=== PATIENT | male | born 1990 | race African-American/Black ===

== ENCOUNTER 2019-03-28 17:47 | Emergency (ER) | payer OTHER ==
[2019-03-28 18:33] VITALS: BP 127/72
--- NOTE | 2019-03-28 19:13 | UC ---
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 + pressure and muffled, doesnt get better. -no ST, no cough, no congestion. no cold sx. no rash -just moved to area and doesnt have MD - History of Current Complaint Chief Complaint: UCEar Stated Complaint: L EAR PAIN Time Seen by Provider: 03/28/19 18:56 Pain Intensity: 5 - Allergies/Home Medications Allergies/Adverse Reactions: Allergies Allergy/AdvReac Type Severity Reaction Status Date / Time No Known Allergies Allergy Verified 03/28/19 18:33 PMH/Surg Hx/FS Hx/Imm Hx Previously Healthy: Yes - Surgical History Surgical History: None - Family History Known Family History: Positive: Hypertension - Social History Alcohol Use: None Alcohol Amount: 1 beer per week Substance Use Type: None Substance Use Comment - Amount & Last Used: history of marijuana use Smoking Status (MU): Light Every Day Tobacco Smoker Review of Systems All Other Systems Reviewed And Are Negative: Yes Constitutional: Positive: Negative Skin: Positive: Negative. Negative: Rash Eyes: Positive: Negative ENT: Positive: Negative, Ear Ache. Negative: Sore Throat, Nasal Discharge Respiratory: Positive: Negative Cardiovascular: Positive: Negative Gastrointestinal: Positive: Negative Genitourinary: Positive: Negative Motor: Positive: Negative Neurovascular: Positive: Negative Musculoskeletal: Positive: Negative Psychological: Positive: Negative Is Patient Immunocompromised?: No Physical Exam Triage Information Reviewed: Yes Appearance: Well-Appearing, No Pain Distress, Well-Nourished - very pleasant Vital Signs: Initial Vital Signs Temp 99.2 F 03/28/19 18:31 Pulse 86 03/28/19 18:31 Resp 18 03/28/19 18:31 BP 127/72 03/28/19 18:31 Pulse Ox 100 03/28/19 18:31 Eye Exam: Normal ENT: Positive: TM red - + several bclear fluid filled blisters superimposed on TM. no dc. intact. no perf., Uvula midline. 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 Discharge - Sign-Out/Discharge Documenting (check all that apply): Patient Departure All imaging exams completed and their final reports reviewed: No Studies - Discharge Plan Condition: Stable Disposition: HOME Prescriptions: Azithromyxin YASEMIN (NF) [Z-Yasemin (Zithromax) 250 mg tabs #6] 2 tab PO .TODAY, THEN 1 DAILY #6 tab Patient Education Materials: Ear Infection (ED) Referrals: No Primary Care Phys,NOPCP [Primary Care Provider] - [facility] [Provider Group] Additional Instructions: Your ear infection is is specific kind called bullous myrigitis that requires specific antibiotic therapy, azithromycin is considered 1st line treatment. Please follow up with PCP - # provided above for you to establish with. You can follow up here if your symptoms are increased or persist. - Billing Disposition and Condition Condition: STABLE Disposition: Home
== END 2019-03-28 19:25 | disposition home or self-care (01) ==
LOC: UCCORT 17:47
DX: H73.012 Bullous myringitis, left ear (principal); F17.200 Nicotine dependence, unspecified, uncomplicated
CPT/HCPCS: 99202; G0463

== ENCOUNTER 2019-10-10 13:27 | Emergency (ER) | payer OTHER ==
[2019-10-10 14:24] LABS: Influenza A Molecular Negative (Negative); Influenza B Molecular Negative (Negative)
--- NOTE | 2019-10-10 16:40 | ED ---
Influenza-Like Illness - HPI Summary HPI Summary: 29-year-old male with a past medical history of hypertension, Tourette's presents to the emergency department today with a chief complaint of body aches , fever, shortness of breath, cough and decreased appetite which began yesterday. Patient states he has significant myalgia which is made worse with taking deep breaths. He states his pain is "internal in my back". Patient has not taken any medication prior to arrival for alleviation of his symptoms. Patient is currently resting comfortably on the stretcher and in no acute distress. There is no evidence of labored breathing. Patient denies nausea, vomiting, diarrhea, pain with urination, rash, chest pain. Patient denies recent recreational drug use or alcohol use. Surgical history and family history noncontributory. - History of Current Complaint Chief Complaint: EDFluSymptoms Time Seen by Provider: 10/10/19 16:39 Hx Obtained From: Patient Onset/Duration: Gradual Onset Severity: Severe Associated Signs & Symptoms: Fever, Myalgia, Cough - Allergy/Home Medications Allergies/Adverse Reactions: Allergies Allergy/AdvReac Type Severity Reaction Status Date / Time No Known Allergies Allergy Verified 10/10/19 13:30 PMH/Surg Hx/FS Hx/Imm Hx Infectious Disease History: No Infectious Disease History: Denies: Traveled Outside the [place] in Last 30 Days - Family History Known Family History: Positive: Hypertension - Social History Alcohol Use: Occasionally Alcohol Amount: 1 beer per week Substance Use Type: Reports: Marijuana Substance Use Comment - Amount & Last Used: 5-7 'blunts" a day Smoking Status (MU): Light Every Day Tobacco Smoker Review of Systems Positive: Fever, Fatigue Eyes: Negative ENT: Negative Cardiovascular: Negative Positive: Shortness Of Breath, Cough Gastrointestinal: Negative Genitourinary: Negative Positive: Myalgia. Negative: Decreased ROM Skin: Negative Positive: Headache. Negative: Paresthesia, Numbness, Syncope Psychological: Normal All Other Systems Reviewed And Are Negative: Yes Physical Exam - Summary Physical Exam Summary: Patient's skin is warm to touch. Patient is in mild pain distress in the room upon arrival. The patient has no noted stridor or wheezing. Auscultation of the heart reveals S1, S2, regular rate and rhythm. Auscultation the lungs reveal diminished lung sounds throughout. Patient is unable to take a deep breath due to pain. Patient has no midline tenderness of the spine however he complains of diffuse pain throughout the back with palpation. No obvious rashes. Patient is alert and oriented 3. No nuchal rigidity. Triage Information Reviewed: Yes Vital Signs On Initial Exam: Initial Vitals Temp Pulse Resp BP Pulse Ox 100.3 F 122 20 137/94 97 10/10/19 13:29 10/10/19 13:29 10/10/19 13:29 10/10/19 13:29 10/10/19 13:29 Vital Signs Reviewed: Yes Appearance: Positive: Well-Appearing, No Pain Distress, Well-Nourished Skin: Positive: Warm, Skin Color Reflects Adequate Perfusion Eyes: Positive: EOMI, CATHY Respiratory/Lung Sounds: Positive: Clear to Auscultation, Breath Sounds Present Cardiovascular: Positive: RRR, S1, S2 Abdomen Description: Positive: Nontender, Soft Bowel Sounds: Positive: Present Musculoskeletal: Positive: Strength/ROM Intact Neurological: Positive: Sensory/Motor Intact, Alert, Oriented to Person Place, Time, Facial Symmetry, Speech Normal Psychiatric: Positive: Normal, Affect/Mood Appropriate AVPU Assessment: Alert Procedures - Sedation Patient Received Moderate/Deep Sedation with Procedure: No Diagnostics - Vital Signs Vital Signs Temp Pulse Resp BP Pulse Ox 10/10/19 16:26 101.7 F 10/10/19 15:37 100.5 F 117 18 140/76 97 10/10/19 13:29 100.3 F 122 20 137/94 97 - Laboratory Lab Results: Lab Results 10/10/19 Range/Units 13:35 Influenza A (Rapid) Negative (Negative) Influenza B (Rapid) Negative (Negative) Result Diagrams: 10/10/19 16:56 10/10/19 16:56 Lab Statement: Any lab studies that have been ordered have been reviewed, and results considered in the medical decision making process. Flu Symptom Course/Dx - Course Course Of Treatment: Patient was evaluated in the emergency department today for muscle aches and shortness of breath. Vitals noted. Influenza negative. Laboratory studies returned showing leukocytosis with a total count of 23.8. No significant electrolyte disturbance. Chest x-ray shows left-sided pulmonary infiltrate consistent with pneumonia. Patient given doxycycline in the emergency department for pneumonia. Due to the patient's now claiming he has GI symptoms as well as his mild hyponatremia Legionella antigen was ordered which resulted as negative. Patient was placed on azithromycin for outpatient treatment of pneumonia. Patient discharged with outpatient follow-up. - Diagnoses Differential Diagnosis/HQI/PQRI: Positive: Bronchitis, Influenza, Pneumonia, RSV , Upper Respiratory Infection Provider Diagnoses: Pneumonia Discharge ED - Sign-Out/Discharge Documenting (check all that apply): Patient Departure - Discharge Plan Condition: Stable Disposition: HOME Prescriptions: Azithromycin TAB* [Zithromax TAB (Z-YASEMIN) 250 mg #6 tabs] 2 tab PO .TODAY, THEN 1 DAILY #1 yasemin Patient Education Materials: Pneumonia (ED) Referrals: [facility] [Outside] - 3 Days No Primary Care Phys,NOPCP [Primary Care Provider] - Additional Instructions: You were Diagnosed with pneumonia in the emergency department. 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 Please follow up with [facility] in 3 days for further evaluation and management. Please return to emergency department immediately if you develop any new or worsening symptoms. - Billing Disposition and Condition Condition: STABLE Disposition: Home
[2019-10-10] MEDS ORDERED: NS 0.9% 1000 ML** 1,000 ML IV ONE (16:45)
[2019-10-10] MEDS ORDERED: Acetaminophen TAB* 325 MG PO ONE (16:46)
[2019-10-10 17:07] LABS: Hematocrit 45 % (42-52); Hemoglobin 14.9 g/dL (14.0-18.0); Mean Corpuscular HGB Conc 33 g/dL (31-36); Mean Corpuscular Hemoglobin 28 pg (27-31); Mean Corpuscular Volume 85 fL (80-94); Mean Platelet Volume 6.8 fL (7.4-10.4); Platelet Count 273 10^3/uL (150-450); Red Blood Count 5.27 10^6 /uL (4.18-5.48); Red Cell Distribution Width 15 % (10-15); White Blood Count 23.8 10^3/uL (3.5-10.8)
[2019-10-10 17:24] LABS: Albumin/Globulin Ratio 1.2 (1-3); EGFR African American 87.1 (>60); Globulin 3.4 g/dL (2-4); Potassium 3.5 mmol/L (3.5-5.0); Total Bilirubin 1.4 mg/dL (0.2-1.0); Total Protein 7.4 g/dL (6.4-8.9)
[2019-10-10 18:03] LABS: ABS Lymphocytes 0.5 10^3/ul (1.0-4.8); ABS Monocytes 1.9 10^3/ul (0-0.8); ABS Neutrophils 21.3 10^3/ul (1.5-7.7); Eosinophil % 0.1 %; Lymphocyte % 2.1 %
[2019-10-10] MEDS ORDERED: DOXYcycline CAP(*) 100 MG PO ONE (18:25)
[2019-10-10 19:27] LABS: Urine Appearance Clear; Urine Bilirubin Negative (Negative); Urine Blood 2+ (Negative); Urine Color Yellow; Urine Glucose Negative (Negative); Urine Ketones Trace (Negative); Urine Nitrite Negative (Negative); Urine Protein 1+(30 mg/dL) (Negative); Urine Specific Gravity 1.013 (1.010-1.030); Urine Urobilinogen Positive (Negative)
[2019-10-10 19:31] LABS: Urine Bacteria Absent (Absent); Urine Red Blood Cell 2+(6-10/hpf) (Absent); Urine White Blood Cell Trace(0-5/hpf) (Absent)
[2019-10-10] MEDS ORDERED: Azithromycin TAB* 250 MG PO ONE (20:09)
[2019-10-10 20:26] VITALS: BP 135/86
== END 2019-10-10 20:23 | disposition home or self-care (01) ==
LOC: ED 13:27
DX: J18.9 Pneumonia, unspecified organism (principal); R50.9 Fever, unspecified; D72.829 Elevated white blood cell count, unspecified; I10 Essential (primary) hypertension; F95.2 Tourette's disorder; F17.200 Nicotine dependence, unspecified, uncomplicated
CPT/HCPCS: 36415; 71046; 80053; 81003; 81015; 84484; 85025; 87086; 87899; 96360; 99283; A9270-GY